=== PATIENT | female | born 1985 | race Caucasian/White ===

== ENCOUNTER 2017-10-07 16:48 | Emergency (ER) | payer OTHER ==
[2017-10-07] MEDS ORDERED: Acetaminophen TAB* 325 MG PO ONE (18:11)
[2017-10-07] MEDS ORDERED: LORazepam TAB(*) 1 MG PO ONE (18:11)
[2017-10-07 21:09] VITALS: BP 125/84
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
== END 2017-10-07 21:08 | disposition home or self-care (01) ==
LOC: ED 16:48
DX: F41.0 Panic disorder [episodic paroxysmal anxiety] (principal); F43.10 Post-traumatic stress disorder, unspecified; F41.9 Anxiety disorder, unspecified
CPT/HCPCS: 99282; A9270-GY